=== PATIENT | male | born 1985 | race African-American/Black ===

== ENCOUNTER 2019-01-31 19:03 | Emergency (ER) | payer OTHER ==
[~2019-01-31] VITALS: Ht 177.8 cm; Wt 81.6 kg
[2019-01-31 19:37] VITALS: BP 123/84
[2019-01-31] MEDS ORDERED: cefTRIAXone 2 GM in NS 55 ML IVPB ONE (19:45)
[2019-01-31] MEDS ORDERED: Tylenol #3 tab (300mg/30mg) ORAL ONE (20:15)
[2019-01-31 20:28] LABS: BASOPHILS % (AUTO) 1.2 % (0.0-2.0); EOSINOPHILS % (AUTO) 0.6 % (0.0-3.0); HEMOGLOBIN 16.5 G/DL (14.2-18.0); LYMPHOCYTES % (AUTO) 29.3 % (20.0-45.0); MEAN CORPUSCULAR VOLUME 89 FL (80-99); MONOCYTES % (AUTO) 6.3 % (1.0-10.0); NEUTROPHILS % (AUTO) 62.6 % (45.0-75.0); PLATELET COUNT 232 K/UL (150-450); RED BLOOD COUNT 5.05 M/UL (4.70-6.10); WHITE BLOOD COUNT 8.1 K/UL (4.8-10.8)
[2019-01-31 20:31] LABS: ANION GAP 7 mmol/L (5-15); BLOOD UREA NITROGEN 14 mg/dL (7-18); CALCIUM 9.4 MG/DL (8.5-10.1); CARBON DIOXIDE 28 MMOL/L (21-32); CHLORIDE 104 MMOL/L (98-107); CREATININE 1.3 MG/DL (0.55-1.30); POTASSIUM 4.2 MMOL/L (3.5-5.1); SODIUM 139 MMOL/L (136-145)
[2019-01-31 20:44] LABS: ALANINE AMINOTRANSFERASE 19 U/L (12-78); ALBUMIN 4.1 G/DL (3.4-5.0); ALBUMIN/GLOBULIN RATIO 1.1 (1.0-2.7); ALKALINE PHOSPHATASE 59 U/L (46-116); ASPARTATE AMINO TRANSFERASE 21 U/L (15-37); BILIRUBIN,TOTAL 1.7 MG/DL (0.2-1.0)
[2019-01-31 20:45] LABS: BILIRUBIN,DIRECT 0.3 MG/DL (0.0-0.3)
--- NOTE | 2019-01-31 21:01 | Emergency Room Report ---
History of Present Illness General Chief Complaint: Wound Recheck/Suture Removal Source: Patient (Newton Khan) Present Illness HPI 33-year-old male with no significant past medical history here complaining of pain in her right hand after he got an aberration when he fell a week ago. He also has his forearm wraps and says that he is feeling fine in his forearm. After unwrapping the forearm multiple infected abrasions are noted as well as the palm of his hand. Patient has taken ibuprofen for pain with minimal relief. Denies fever and chills, tingling and numbness. Patient has full range of motion in hand and right forearm. Denies chest pain, shortness of breath, dizziness, headache, palpitation, and all other associated symptoms patient is rating his pain 7 out of 10 without radiation. Patient is up-to- date with his tetanus shot as he had an injury 3 years ago. (Newton Khan) Allergies: Coded Allergies: No Known Allergies (Unverified , 01/31/19) Patient History Past Medical History: see triage record Past Surgical History: unable to obtain Pertinent Family History: none Immunizations: UTD Reviewed Nursing Documentation: PMH: Agreed; PSxH: Agreed (Newton Khan) Nursing Documentation-PMH Past Medical History: No Stated History (Newton Khan) Review of Systems All Other Systems: negative except mentioned in HPI (Newton Khan) Physical Exam Vital Signs Date Time Temp Pulse Resp B/P (MAP) Pulse Ox O2 Delivery O2 Flow Rate FiO2 01/31/19 19:22 98.4 92 18 120/87 (98) 99 Room Air Sp02 EP Interpretation: reviewed, normal General Appearance: normal inspection, well appearing, no apparent distress, alert, GCS 15 Head: normocephalic, atraumatic Eyes: bilateral eye normal inspection, bilateral eye PERRL ENT: normal ENT inspection, hearing grossly normal, normal pharynx Neck: normal inspection, full range of motion, supple Respiratory: normal inspection, chest non-tender, lungs clear, no rhonchi, no respiratory distress, no wheezing Cardiovascular #1: normal inspection, regular rate, rhythm, no murmur Cardiovascular #2: 2+ radial (R), 2+ radial (L) Gastrointestinal: normal inspection, non tender, soft Genitourinary: no CVA tenderness Musculoskeletal: back normal, other - infected abrasions on right forearm and right hand with pus drainage Neurologic: normal inspection, alert, oriented x3, responsive, java application developer III-XII nml as tested Psychiatric: normal inspection, judgement/insight normal Skin: abrasions - Infected aberration of the right forearm and hand pus drainage Lymphatic: normal inspection, no adenopathy (Newton Khan) Medical Decision Making PA Attestation All my diagnosis and treatment plans were reviewed ad discussed with my supervising physician Dr. Maldonado (Newton Khan) Diagnostic Impression: Primary Impression: Infected abrasion of right hand Additional Impressions: Infected abrasion of right forearm Cellulitis of right forearm ER Course 33-year-old male with no significant past medical history here complaining of pain in her right hand after he got an aberration when he fell a week ago. He also has his forearm wraps and says that he is feeling fine in his forearm. After unwrapping the forearm multiple infected abrasions are noted as well as the palm of his hand. Patient has taken ibuprofen for pain with minimal relief. Denies fever and chills, tingling and numbness. Patient has full range of motion in hand and right forearm. Denies chest pain, shortness of breath, dizziness, headache, palpitation, and all other associated symptoms patient is rating his pain 7 out of 10 without radiation. Patient is up-to- date with his tetanus shot as he had an injury 3 years ago. Ddx considered but are not limited to: Right hand abscess, right hand abrasion infected, forearm abrasion to infection, osteomyelitis, sepsis Vital signs: are WNL, pt. is afebrile H&PE are most consistent with: Infected aberration of the right forearm and hand ORDERS: Right forearm a right hand x-ray, IV Rocephin, Bactrim DS, Tylenol 3, naproxen, CBC, CMP ED INTERVENTIONS: Tylenol 3, IV Rocephin, wound clean and dress DISCHARGE: At this time pt. is stable for d/c to home. Will provide printed patient care instructions, and any necessary prescriptions. Care plan and follow up instructions have been discussed with the patient prior to discharge. Follow-up with your primary care provider for wound check in 24 to 48 hours if fever and chills return to the emergency room take medication as prescribed. (Newton Khan) Other X-Ray Diagnostic Results Other X-Ray Diagnostic Results #1: X-Ray ordered: right forearm # of Views/Limited Vs Complete: 3 View Indication: Pain EP Interpretation: Yes PA Xray: Interpretation reviewed, by supervising MD, and agrees with findings. Interpretation: no dislocation, no soft tissue swelling Impression: No acute disease Electronically Signed by: newton LOPEZ Scribe Text WNL Other X-Ray Diagnostic Results #2: X-Ray ordered: right hand # of Views/Limited Vs Complete: 3 View Indication: Pain EP Interpretation: Yes PA Xray: Interpretation reviewed, by supervising MD, and agrees with findings. Interpretation: no dislocation, no soft tissue swelling, no fractures Impression: No acute disease Electronically Signed by: newton LOPEZ Scribe Text WNL (Newton Khan) Other X-Ray Diagnostic Results #1: Electronically Signed by: P A documentation of Xray reviewed by me and is accurate, Noel Maldonado MD Other X-Ray Diagnostic Results #2: Electronically Signed by: P A documentation of Xray reviewed by me and is accurate, Noel Maldonado MD (Noel Maldonado MD) Last Vital Signs Date Time Temp Pulse Resp B/P (MAP) Pulse Ox O2 Delivery O2 Flow Rate FiO2 01/31/19 19:22 98.4 92 18 120/87 (98) 99 Room Air (Newton Khan) Disposition: HOME, SELF-CARE Condition: Stable Scripts Naproxen* (NAPROXEN*) 500 Mg Tablet 500 MG ORAL TWICE A DAY, #30 TAB Prov: Newton Khan 01/31/19 Trimethoprim/Sulfamethoxazole (Bactrim Ds Tablet) 1 Each Tablet 1 TAB ORAL TWICE A DAY for 7 Days, #14 TAB Prov: Newton Khan 01/31/19 Referrals: Felipa XAVIER,REFERRING (PCP) Patient Instructions: Abrasion, [id number], Cellulitis, [id number] Additional Instructions: Follow-up with your primary care provider in 24 to 48 hours for wound check take medication as directed further imaging may be needed Newton Khan Jan 31, 2019 21:01 Noel Maldonado MD Feb 01, 2019 07:19
[2019-01-31] MEDS ORDERED: NAPROXEN500 M2 ORAL (21:02)
[2019-01-31] MEDS ORDERED: BACTRIM-DS1 EA ORAL (21:02)
[2019-01-31 21:18] VITALS: BP 123/84
--- NOTE | 2019-02-01 10:36 | Diagnostic Imaging Report ---
Indications: Pain Technique: Two views of the right forearm Comparison: None Findings: No acute fractures. No dislocations. The joint spaces are preserved. No osteolytic lesions, osseous erosions, or unusual periosteal reaction. No radiopaque foreign body Impression: Negative No plain radiographic evidence of osseous myelitis. Note, however, limited sensitivity of plain radiographs for such. Consider MRI for better characterization if there is high clinical suspicion This agrees with the preliminary interpretation provided overnight by [facility] service.
--- NOTE | 2019-02-01 10:40 | Diagnostic Imaging Report ---
Indication: Pain Technique: 3 views right hand Comparison: none Findings: No acute fractures. No dislocations. No radiopaque foreign body demonstrated. No osseous erosions, osteolytic lesion, or unusual periosteal reaction to suggest acute osseous myelitis demonstrated. There is evidence of an old ununited fracture of the base of the third middle phalanx. Tiny area of osteosclerosis in the first proximal phalanx likely reflects an old calcified fibrous cortical defect Impression: No acute bony trauma. Evidence old ununited third middle phalangeal base fracture No plain radiographic evidence of osseous myelitis. Note, however, limited sensitivity of plain radiographs for such. Consider MRI for further evaluation if there is high clinical suspicion
== END 2019-01-31 21:18 | disposition home or self-care (01) ==
LOC: EMR 19:40
DX: S60.511A Abrasion of right hand, initial encounter (principal); S50.811A Abrasion of right forearm, initial encounter; L03.113 Cellulitis of right upper limb; W19.XXXA Unspecified fall, initial encounter; Y92.9 Unspecified place or not applicable
CPT/HCPCS: 36415; 73090; 73130; 80053; 82248; 85025; 96365; 99284; J0696